=== PATIENT | female | born 1990 | race Caucasian/White ===

== ENCOUNTER 2021-02-24 12:44 | Emergency (ER) | payer OTHER ==
[2021-02-24] MEDS ORDERED: ZOFRAN ODT 4 MG4 MG PO (14:57)
== END 2021-02-24 15:03 | disposition home or self-care (01) ==
LOC: ER1 12:44
DX: S06.0X9A Concussion with loss of consciousness of unspecified duration, initial encounter (principal); M25.572 Pain in left ankle and joints of left foot; Z90.49 Acquired absence of other specified parts of digestive tract; V49.40XA Driver injured in collision with unspecified motor vehicles in traffic accident, initial encounter; Y92.410 Unspecified street and highway as the place of occurrence of the external cause
CPT/HCPCS: 73552; 73610; 99283

== ENCOUNTER → 2021-04-27 | Outpatient (CLI) | payer OTHER ==
[~2021-04-27] MED LIST: ZOFRAN ODT 4 MG4 MG PO
== END ==
LOC: KOH-I 12:53
DX: S93.492A Sprain of other ligament of left ankle, initial encounter (principal); S86.392A Other injury of muscle(s) and tendon(s) of peroneal muscle group at lower leg level, left leg, initial encounter
CPT/HCPCS: 73721

== ENCOUNTER 2021-05-07 10:40 | Emergency (ER) | payer OTHER ==
[2021-05-07 14:19] LABS: HEMOGLOBIN 13.1 gm/dl (12.3-15.3); RED BLOOD COUNT 4.24 M/UL (4.00-5.10); WHITE BLOOD COUNT 11.6 K/UL (4.5-11.0)
[2021-05-07 14:41] LABS: BUN/CREATININE RATIO 19 (0-10)
== END 2021-05-07 15:25 | disposition home or self-care (01) ==
LOC: ER1 10:40
PROVIDERS: Physician Assistant
DX: N93.8 Other specified abnormal uterine and vaginal bleeding (principal); Z90.49 Acquired absence of other specified parts of digestive tract; Z79.899 Other long term (current) drug therapy
CPT/HCPCS: 80048; 81001; 84703; 85025; 99284

== ENCOUNTER 2022-04-11 05:56 | Outpatient (CLI) | payer OTHER | END 2022-04-11 07:37 | disposition home or self-care (01) | LOC: GENOP 05:56 | DX: O99.891 Other specified diseases and conditions complicating pregnancy (principal); R31.9 Hematuria, unspecified; Z3A.29 29 weeks gestation of pregnancy | CPT/HCPCS: 81001; G0463 ==

== ENCOUNTER 2022-06-15 11:23 | Outpatient (CLI) | payer OTHER ==
[2022-06-15 11:53] LABS: HEMOGLOBIN 11.8 gm/dl (12.3-15.3); RED BLOOD COUNT 3.96 M/UL (4.00-5.10); WHITE BLOOD COUNT 7.6 K/UL (4.5-11.0)
== END 2022-06-15 12:05 | disposition home or self-care (01) ==
LOC: GENOP 11:23
PROVIDERS: Obstetrics & Gynecology
DX: Z01.812 Encounter for preprocedural laboratory examination (principal)
CPT/HCPCS: 81001; 85025

== ENCOUNTER 2022-06-17 05:26 | Inpatient (IN) | payer OTHER ==
[~2022-06-17] VITALS: Ht 162.6 cm; Wt 93.4 kg
[2022-06-17] MEDS ORDERED: COLACE 100MG C100 MG PO (08:05)
[2022-06-17] MEDS ORDERED: IBUPROFEN600 MG PO (08:05)
[2022-06-17] MEDS ORDERED: HYDROCODON-ACE1 EAC6 PO (08:05)
[2022-06-18 06:36] LABS: HEMOGLOBIN 10.1 gm/dl (12.3-15.3)
== END 2022-06-18 16:00 | disposition home or self-care (01) | DRG 788 ==
LOC: OB 05:26
PROVIDERS: ADMIT Obstetrics & Gynecology
PROC: 3E0234Z Introduction of Serum, Toxoid and Vaccine into Muscle, Percutaneous Approach (ICD-10-PCS; 2022-06-17)
PROC: 10D00Z1 Extraction of Products of Conception, Low, Open Approach (ICD-10-PCS; principal; 2022-06-17 09:15)
DX: O34.211 Maternal care for low transverse scar from previous cesarean delivery (principal); Z37.0 Single live birth; Z3A.39 39 weeks gestation of pregnancy; Z98.890 Other specified postprocedural states; Z90.49 Acquired absence of other specified parts of digestive tract; Z82.49 Family history of ischemic heart disease and other diseases of the circulatory system; Z83.3 Family history of diabetes mellitus; Z80.1 Family history of malignant neoplasm of trachea, bronchus and lung; Z23 Encounter for immunization
CPT/HCPCS: 36415; 82800; 85014; 85018; 90471; 90715; C9113; J0690; J1200; J1885; J2210; J2274; J2370; J2405; J2590; J3010